=== PATIENT | female | born 1965 | race Caucasian/White ===

== ENCOUNTER → 2022-03-19 09:30 | Outpatient (CLI) | payer BC, SELFPAY ==
--- NOTE | ~2022-03-19 | MR_ITS ---
EXAMINATION: MR knee RT wo con DATE: 03/19/2022 10:09 INDICATION: Acute right knee pain. TECHNIQUE: Magnetic resonance imaging (MRI) of the right knee was performed without intravenous contr ast. Sequences included axial PD-weighted FS FSE, coronal PD-weighted FSE and PD-weighted FS FSE, sag ittal PD-weighted FSE, and sagittal T2-weighted FS FSE. COMPARISON: None. FINDINGS: Medial compartment: Medial meniscus is normal. There is cartilage surface irregularity of femoral condyle and tibial cond yle. Lateral compartment: Lateral meniscus is normal. Lateral compartment cartilage is normal. Patellofemoral compartment: There is deep partial thickness cartilage loss of patellar median ridge and medial facet with mild doty bchondral edema-like marrow signal intensity. Trochlear cartilage is normal. Ligaments and tendons: Anterior cruciate ligament is normal. There is a partial tear of posterior cruciate ligament characte rized by thickening and increased signal intensity. Medial collateral ligament is normal. There are c hanges of prior sprain of fibular collateral ligament characterized by thickening and increased signa l intensity proximally. There is mild patellar tendinopathy. Fluid: There is a small knee joint effusion. There is trace fluid in a Cochran's cyst. There is mild superfici al infrapatellar bursitis. IMPRESSION: 1. 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 2. Partial tear of posterior cruciate ligament. 3. Small knee joint effusion. Reviewed, dictated and finalized at location A. [employer] IMPRESSION: 1. Moderate chondrosis of patellofemoral compartment and mild chondrosis of med ial compartment. 2. Partial tear of posterior cruciate ligament. 3. Small knee joint effusion.
== END ==
PROVIDERS: PCP Family Medicine; Visit Provider Physician Assistant
DX: M25.461 Effusion, right knee (principal); S83.521A Sprain of posterior cruciate ligament of right knee, initial encounter; X58.XXXA Exposure to other specified factors, initial encounter
CPT/HCPCS: 73721

== ENCOUNTER → 2022-09-24 15:18 | Outpatient (CLI) | payer BC, SELFPAY ==
--- NOTE | ~2022-09-24 | MR_ITS ---
EXAMINATION: MR cervical spine wo con DATE: 09/24/2022 15:45 INDICATION: Chronic neck pain. TECHNIQUE: Magnetic resonance imaging (MRI) of the cervical spine was performed without intravenous c ontrast. COMPARISON: None FINDINGS: There is mild kyphosis of cervical spine. Vertebral body heights are normal. There is mildl y decreased disc height at C4-C5 and C5-C6. The spinal cord signal intensity is normal. The following disc levels are specifically discussed: C2-C3: The disc does not extend beyond the endplate margin. There is mild left uncovertebral joint os teoarthritis. There is mild right and severe left facet joint osteoarthritis. There is mild left neur al foraminal stenosis. There is no central canal stenosis. C3-C4: The disc is bulging. There is mild bilateral uncovertebral joint osteoarthritis. There is mode rate right and mild left facet joint osteoarthritis. There is mild right neural foraminal stenosis. T here is no central canal stenosis. C4-C5: The disc is bulging. There is mild bilateral uncovertebral joint osteoarthritis. There is no f acet joint osteoarthritis. There is no neural foraminal stenosis. There is no central canal stenosis. C5-C6: The disc is bulging. There is moderate bilateral uncovertebral joint osteoarthritis. There is mild bilateral facet joint osteoarthritis. There is mild left neural foraminal stenosis. There is no central canal stenosis. C6-C7: The disc does not extend beyond the endplate margin. There is mild left uncovertebral joint os teoarthritis. There is mild bilateral facet joint osteoarthritis. There is mild left neural foraminal stenosis. There is no central canal stenosis. C7-T1: The disc does not extend beyond the endplate margin. There is no uncovertebral joint osteoarth ritis. There is mild right and moderate left facet joint osteoarthritis. There is mild left neural fo raminal stenosis. There is no central canal stenosis. IMPRESSION: 1. Mild cervical spondylosis. Reviewed, dictated and finalized at location A.
== END ==
DX: M47.892 Other spondylosis, cervical region (principal)
CPT/HCPCS: 72141